=== PATIENT | male | born 1950 | race Caucasian/White ===

== ENCOUNTER → 2017-06-15 | Outpatient (CLI) | payer OTHER ==
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
== END ==
LOC: RAD 13:06
PROVIDERS: ATTEND Orthopaedic Surgery Foot and Ankle Surgery
DX: M25.511 Pain in right shoulder (principal)

== ENCOUNTER 2017-09-19 22:28 | Emergency (ER) | payer MEDICARE, OTHER ==
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
[2017-09-19] MEDS ORDERED: ACETAMINOPHEN 325 MG TABLET PO ONE (23:34)
[2017-09-19] MEDS ORDERED: IBUPROFEN 800 MG TABLET PO ONE (23:34)
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
[2017-09-20 02:53] VITALS: BP 144/78
== END 2017-09-20 02:00 | disposition home or self-care (01) ==
LOC: ER 22:28
DX: S00.83XA Contusion of other part of head, initial encounter (principal); S00.81XA Abrasion of other part of head, initial encounter; Y09 Assault by unspecified means; Y92.89 Other specified places as the place of occurrence of the external cause
CPT/HCPCS: 70450; 70486; 99284